=== PATIENT | female | born 1945 | race Caucasian/White ===

== ENCOUNTER 2024-03-03 05:46 | Emergency (ER) | payer MEDICARE, BC ==
[2024-03-03 07:49] LABS: INFLUENZA A NAA NEGATIVE (NEGATIVE); RESPIRATORY SYNCYTIAL VIR NAA NEGATIVE (NEGATIVE)
[2024-03-03] MEDS: Dexamethasone 10 MG/ML SDV IM ONE (07:57)
[2024-03-03 08:49] LABS: CORONAVIRUS COVID-19 NAA POSITIVE (NEGATIVE)
== END 2024-03-03 10:34 | disposition home or self-care (01) ==
LOC: JD.ED 05:46
DX: U07.1 COVID-19 (principal); J02.9 Acute pharyngitis, unspecified; I10 Essential (primary) hypertension; Z91.040 Latex allergy status; Z88.8 Allergy status to other drugs, medicaments and biological substances
CPT/HCPCS: 0241U; 71045; 87651; 96372; 99283; J1100